=== PATIENT | male | born 1980 | race Caucasian/White ===

== ENCOUNTER 2021-07-04 12:57 | Emergency (ER) | payer SELFPAY ==
[~2021-07-04] VITALS: Ht 198.1 cm; Wt 154.2 kg
--- NOTE | 2021-07-04 13:30 | NUR ---
BIBS this 40yo/male with CC of pain at Right axilla, Right lateral chest, Right anterior chest and Right leg + bruising on Right lateral thigh. As claimed pt "Was in [place] last week-got lightheaded and fainted. Fell on my Right side and hurt shoulder/side/ head. I still have pain on that side while moving. Vitals checked. Placed comfortably on bed.
--- NOTE | 2021-07-04 14:23 | NUR ---
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
[2021-07-04] MEDS ORDERED: KETOROLAC TROMETHAMINE INJ 30 MG/ML VIAL IM ONE (14:30)
[2021-07-04] MEDS ORDERED: KETOROLAC TROMETHAMINE INJ 30 MG/ML VIAL ONE (14:52)
[2021-07-04] MEDS ORDERED: IBUP-1955 PO (15:23)
[2021-07-04] MEDS ORDERED: CYCL5TAB PO (15:23)
--- NOTE | 2021-07-04 15:25 | NUR ---
EKG DONE AT BEDSIDE
[2021-07-04 15:35] VITALS: BP 128/92
--- NOTE | 2021-07-04 15:35 | NUR ---
Patient discharged to home in stable condition. Written and verbal after care instructions given. Patient verbalizes understanding of instruction.
== END 2021-07-04 15:35 | disposition home or self-care (01) ==
LOC: ER 13:00
DX: S29.011A Strain of muscle and tendon of front wall of thorax, initial encounter (principal); S46.811A Strain of other muscles, fascia and tendons at shoulder and upper arm level, right arm, initial encounter; S70.01XA Contusion of right hip, initial encounter; Z90.89 Acquired absence of other organs; W18.39XA Other fall on same level, initial encounter; Y93.89 Activity, other specified; Y92.89 Other specified places as the place of occurrence of the external cause; Y99.8 Other external cause status
CPT/HCPCS: 71045; 73030; 93005 ×2; 96372; 99284; J1885